=== PATIENT | male | born 1985 | race Caucasian/White ===

== ENCOUNTER 2016-04-22 09:25 | Inpatient (IN) | payer MEDICAID, OTHER ==
[~2016-04-22] VITALS: Ht 167.6 cm; Wt 93.0 kg
[2016-04-22] MEDS ORDERED: HYDROMORPHONE 1 MG/1 ML DISP.SYRIN IV ONE ×2 (10:30→12:30)
[2016-04-22] MEDS ORDERED: KETOROLAC TROMETHAMINE INJ 30 MG/ML VIAL IV ONE (10:30)
[2016-04-22] MEDS ORDERED: HYDROMORPHONE 1 MG/1 ML DISP.SYRIN ONE ×2 (10:49→12:09)
[2016-04-22] MEDS ORDERED: KETOROLAC TROMETHAMINE INJ 30 MG/ML VIAL ONE (10:50)
[2016-04-22 11:00] LABS: ADD UA MICROSCOPIC YES; KETONES,URINE Trace (NEGATIVE); LEUKOCYTE ESTERASE ,URINE Negative (NEGATIVE)
[2016-04-22 11:14] LABS: WBC,URINE 0-2 /HPF (0-3)
[2016-04-22 11:15] LABS: ADD URINE CULTURE NO
[2016-04-22] MEDS ORDERED: ALPR1TAB7 PO (12:26)
[2016-04-22] MEDS ORDERED: AMPH30TA PO (12:26)
[2016-04-22 13:30] VITALS: BP 115/58
[2016-04-22 13:37] LABS: BASOPHILS # (AUTO) 0.1 /CMM (0.0-0.2); BASOPHILS % (AUTO) 0.6 % (0.0-2.0); DIFF TOTAL % 100 %; EOSINOPHILS % (AUTO) 0.4 % (0.0-6.0); HEMATOCRIT 47 % (39-51); HEMOGLOBIN 15.6 g/dL (13.5-17.5); LYMPHOCYTES % (AUTO) 10.3 % (20.0-44.0); MEAN CORPUSCULAR HEMOGLOBIN 31 PG (26.0-33.0); MEAN CORPUSCULAR HGB CONC 34 g/dl (31.0-36.0); MEAN CORPUSCULAR VOLUME 94 fL (80-96); MONOCYTES # (AUTO) 0.8 /CMM (0.1-1.30); MONOCYTES % (AUTO) 7.5 % (2.0-12.0); NEUTROPHILS # (AUTO) 8.1 /CMM (1.8-8.9); NEUTROPHILS % (AUTO) 81.2 % (43.0-81.0); PLATELET COUNT (AUTO) 184 /CMM (150-450); RED BLOOD CELL COUNT(AUTO) 4.97 MIL/uL (4.5-6.0)
[2016-04-22 13:46] LABS: BILIRUBIN,DIRECT 0.2 mg/dL (0.0-0.2); BILIRUBIN,TOTAL 1.1 mg/dL (0.2-1.0); CALCIUM, SERUM 9.2 mg/dL (8.5-10.1); INDIRECT BILIRUBIN 0.9 mg/dL (0.0-1.1); POTASSIUM 3.9 mmol/L (3.5-5.1); TOTAL PROTEIN, SERUM 7.8 g/dL (6.4-8.2)
[2016-04-22 13:51] LABS: INR 0.93 (0.87-1.13); PROTHROMBIN TIME 9.8 SECS (9.5-12.7)
[2016-04-22 14:00] VITALS: BP 115/58
[2016-04-22] MEDS ORDERED: ACETAMINOPHEN 325 MG TABLET PO PRN (14:00)
[2016-04-22] MEDS ORDERED: MAGNESIUM HYDROXIDE 30 ML UDC PO PRN (14:00)
[2016-04-22] MEDS ORDERED: ONDANSETRON HCL/PF 4 MG/2 ML VIAL IVP PRN (14:00)
[2016-04-22] MEDS ORDERED: Z GUARD REMEDY 2 OZ OINT TP PRN (14:00)
[2016-04-22] MEDS: PANTOPRAZOLE 40 MG VIAL IV SCH (14:21)
[2016-04-22] MEDS: HYDROMORPHONE INJ 2 MG/ML DISP.SYRIN IV PRN ×2 (14:22→21:14)
[2016-04-22 16:00] VITALS: BP 119/71
[2016-04-22] MEDS: HYDROCODONE/APAP 5/325MG 1 EACH TABLET PO PRN ×2 (17:33→23:44)
[2016-04-22 20:35] VITALS: BP 117/73
[2016-04-23] MEDS: ZOLPIDEM TARTRATE 5 MG TABLET PO PRN (01:38)
[2016-04-23] MEDS ORDERED: HYDROMORPHONE INJ 2 MG/ML DISP.SYRIN ONE (02:24)
[2016-04-23] MEDS: HYDROMORPHONE INJ 2 MG/ML DISP.SYRIN IV PRN ×3 (02:35→11:47)
[2016-04-23 06:56] LABS: BASOPHILS % (AUTO) 0.6 % (0.0-2.0); DIFF TOTAL % 100 %; EOSINOPHILS # (AUTO) 0.1 /CMM (0.0-0.7); EOSINOPHILS % (AUTO) 0.7 % (0.0-6.0); HEMATOCRIT 41 % (39-51); LYMPHOCYTES # (AUTO) 1.3 /CMM (0.8-4.8); LYMPHOCYTES % (AUTO) 15.2 % (20.0-44.0); MEAN CORPUSCULAR HEMOGLOBIN 32 PG (26.0-33.0); MEAN CORPUSCULAR HGB CONC 34 g/dl (31.0-36.0); MEAN CORPUSCULAR VOLUME 94 fL (80-96); MONOCYTES # (AUTO) 0.7 /CMM (0.1-1.30); MONOCYTES % (AUTO) 8.3 % (2.0-12.0); NEUTROPHILS # (AUTO) 6.3 /CMM (1.8-8.9); NEUTROPHILS % (AUTO) 75.2 % (43.0-81.0); PLATELET COUNT (AUTO) 183 /CMM (150-450); RED BLOOD CELL COUNT(AUTO) 4.36 MIL/uL (4.5-6.0); WHITE BLOOD COUNT (AUTO) 8.3 K/uL (4.3-11.0)
[2016-04-23 07:19] LABS: ALBUMIN 3.3 g/dL (3.4-5.0); BILIRUBIN,TOTAL 0.6 mg/dL (0.2-1.0); CALCIUM, SERUM 8.5 mg/dL (8.5-10.1); CREATININE 0.9 mg/dL (0.6-1.3); PHOSPHORUS 2.9 mg/dL (2.5-4.9); POTASSIUM 3.8 mmol/L (3.5-5.1); TOTAL PROTEIN, SERUM 7.1 g/dL (6.4-8.2)
[2016-04-23 08:00] VITALS: BP 111/75
[2016-04-23] MEDS: DOCUSATE SODIUM 100 MG CAPSULE PO SCH ×2 (08:03→17:26)
[2016-04-23] MEDS: HYDROCODONE/APAP 5/325MG 1 EACH TABLET PO PRN (08:04)
[2016-04-23] MEDS: PANTOPRAZOLE 40 MG VIAL IV SCH (08:13)
[2016-04-23] MEDS ORDERED: ALPRAZOLAM 0.25 MG TABLET PO PRN (10:30)
[2016-04-23] MEDS ORDERED: KETOROLAC TROMETHAMINE INJ 30 MG/ML VIAL IV PRN (10:30)
[2016-04-23] MEDS ORDERED: MORPHINE SULFATE INJ 2 MG/ML DISP.SYRIN IM PRN (12:00)
[2016-04-23] MEDS ORDERED: methylPREDNISolone DOSPAK(4MG) 1 PACK TAB.DS.PK PO ONE (12:00)
[2016-04-23] MEDS ORDERED: DOCUSATE SODIUM 100 MG CAPSULE PO SCH (13:00)
[2016-04-23] MEDS ORDERED: methylPREDNISolone (4MG) 4 MG TABLET (DAY #1) PO ONE (13:30)
[2016-04-23] MEDS ORDERED: IV SET PRIMARY PUMP SET 1 EA INFUS.SET MC ONE (13:43)
[2016-04-23] MEDS: SENNOSIDES/DOCUSATE SODIUM 1 TAB TABLET PO SCH (14:17)
[2016-04-23] MEDS: GABAPENTIN 100 MG CAPSULE PO SCH ×2 (14:17→17:26)
[2016-04-23] MEDS: ACETAMINOPHEN 325 MG TABLET PO SCH ×2 (14:17→17:26)
[2016-04-23] MEDS: IV D5/0.45 NACL 1,000 ML IV PRN (14:18)
[2016-04-23] MEDS: KETOROLAC TROMETHAMINE INJ 30 MG/ML VIAL IV SCH ×2 (14:31→20:03)
[2016-04-23] MEDS: oxyCODONE IR immediate release 5 MG CAPSULE PO PRN (15:18)
[2016-04-23] MEDS: MORPHINE SULFATE INJ 2 MG/ML DISP.SYRIN IV PRN (16:17)
[2016-04-23] MEDS: ALPRAZOLAM 0.25 MG TABLET PO PRN (17:25)
[2016-04-23] MEDS ORDERED: methylPREDNISolone (4MG) 4 MG TABLET (DAY #1, BEFORE DINNER) PO ONE (17:30)
[2016-04-23 20:32] VITALS: BP 128/74
[2016-04-23] MEDS ORDERED: methylPREDNISolone (4MG) 4 MG TABLET (DAY #1, HS) PO ONE (22:00)
[2016-04-24] MEDS: KETOROLAC TROMETHAMINE INJ 30 MG/ML VIAL IV SCH ×3 (01:08→13:57)
[2016-04-24] MEDS: ACETAMINOPHEN 325 MG TABLET PO SCH ×3 (05:25→11:54)
[2016-04-24] MEDS ORDERED: methylPREDNISolone (4MG) 4 MG TABLET (DAY#2 ACB) PO ONE (07:30)
[2016-04-24 08:00] VITALS: BP 132/79
[2016-04-24] MEDS: oxyCODONE IR immediate release 5 MG CAPSULE PO PRN ×4 (08:12→21:57)
[2016-04-24] MEDS: PANTOPRAZOLE 40 MG VIAL IV SCH (09:07)
[2016-04-24] MEDS: SENNOSIDES/DOCUSATE SODIUM 1 TAB TABLET PO SCH (09:08)
[2016-04-24] MEDS: ALPRAZOLAM 0.25 MG TABLET PO PRN ×2 (09:08→21:17)
[2016-04-24] MEDS: DOCUSATE SODIUM 100 MG CAPSULE PO SCH ×2 (09:08→18:19)
[2016-04-24] MEDS: GABAPENTIN 100 MG CAPSULE PO SCH ×3 (09:08→18:19)
[2016-04-24] MEDS: MORPHINE SULFATE INJ 2 MG/ML DISP.SYRIN IV PRN ×2 (11:15→18:33)
[2016-04-24] MEDS ORDERED: methylPREDNISolone (4MG) 4 MG TABLET (DAY#2,PC LUNCH) PO ONE (12:30)
[2016-04-24] MEDS ORDERED: DEXAMETHASONE SOD PHOSPHATE 10 MG/ML VIAL IV STA (14:09)
[2016-04-24] MEDS: NAPROXEN 500 MG TABLET PO SCH ×2 (15:15→17:00)
[2016-04-24 16:00] VITALS: BP 122/72
[2016-04-24] MEDS ORDERED: methylPREDNISolone (4MG) 4 MG TABLET (DAY#2, PC DINNER) PO ONE (17:30)
[2016-04-24] MEDS ORDERED: methylPREDNISolone (4MG) 4 MG TABLET (DAY#2, HS) PO ONE (21:00)
[2016-04-24 22:00] VITALS: BP 130/75
[2016-04-24] MEDS: IV D5/0.45 NACL 1,000 ML IV PRN (23:17)
[2016-04-25] MEDS: MORPHINE SULFATE INJ 2 MG/ML DISP.SYRIN IV PRN ×3 (01:22→09:56)
[2016-04-25] MEDS: oxyCODONE IR immediate release 5 MG CAPSULE PO PRN ×5 (04:38→17:01)
[2016-04-25] MEDS ORDERED: methylPREDNISolone (4MG) 4 MG TABLET (DAY#3,ACB) PO ONE (07:30)
[2016-04-25 08:00] VITALS: BP 123/70
[2016-04-25] MEDS: DOCUSATE SODIUM 100 MG CAPSULE PO SCH ×2 (08:12→16:54)
[2016-04-25] MEDS: PANTOPRAZOLE 40 MG VIAL IV SCH (08:12)
[2016-04-25] MEDS: SENNOSIDES/DOCUSATE SODIUM 1 TAB TABLET PO SCH (08:12)
[2016-04-25] MEDS: GABAPENTIN 100 MG CAPSULE PO SCH ×3 (08:12→16:52)
[2016-04-25] MEDS: NAPROXEN 500 MG TABLET PO SCH ×2 (08:15→16:52)
[2016-04-25] MEDS ORDERED: methylPREDNISolone (4MG) 4 MG TABLET (DAY#3,PC LUNCH) PO ONE (12:30)
[2016-04-25] MEDS ORDERED: KETOROLAC TROMETHAMINE INJ 60 MG/2 ML VIAL IM STA (13:36)
[2016-04-25 14:22] LABS: CALCIUM, SERUM 8.6 mg/dL (8.5-10.1); POTASSIUM 4.2 mmol/L (3.5-5.1)
[2016-04-25 16:00] VITALS: BP_SYST 108; BP_SYST 126; BP_DIAS 58; BP_DIAS 86
[2016-04-25 16:49] VITALS: BP 126/86
[2016-04-25] MEDS ORDERED: methylPREDNISolone (4MG) 4 MG TABLET (DAY#3,PC DINNER) PO ONE (17:30)
[2016-04-25 20:00] VITALS: BP 114/85
[2016-04-25] MEDS: ALPRAZOLAM 0.25 MG TABLET PO PRN (20:37)
[2016-04-25] MEDS: ZOLPIDEM TARTRATE 5 MG TABLET PO PRN (21:43)
[2016-04-25] MEDS ORDERED: methylPREDNISolone (4MG) 4 MG TABLET (DAY#3, HS) PO ONE (22:00)
[2016-04-26] MEDS: oxyCODONE IR immediate release 5 MG CAPSULE PO PRN ×5 (00:28→13:07)
[2016-04-26] MEDS ORDERED: methylPREDNISolone (4MG) 4 MG TABLET (DAY #4, ACB) PO ONE (07:30)
[2016-04-26 08:00] VITALS: BP 100/51
[2016-04-26] MEDS: GABAPENTIN 100 MG CAPSULE PO SCH ×2 (08:27→12:41)
[2016-04-26] MEDS: DOCUSATE SODIUM 100 MG CAPSULE PO SCH (08:27)
[2016-04-26] MEDS: PANTOPRAZOLE 40 MG VIAL IV SCH (08:27)
[2016-04-26] MEDS: SENNOSIDES/DOCUSATE SODIUM 1 TAB TABLET PO SCH (08:27)
[2016-04-26] MEDS: NAPROXEN 500 MG TABLET PO SCH (08:30)
[2016-04-26] MEDS: ALPRAZOLAM 0.25 MG TABLET PO PRN (10:19)
[2016-04-26] MEDS: MORPHINE SULFATE INJ 2 MG/ML DISP.SYRIN IV PRN (10:20)
[2016-04-26] MEDS ORDERED: FLU VACC QS 2016-17(36MOS+)/PF 0.5 ML DISP.SYRIN IM ONE (12:00)
[2016-04-26] MEDS ORDERED: methylPREDNISolone (4MG) 4 MG TABLET (DAY #4, PC LUNCH) PO ONE (12:30)
[2016-04-26] MEDS ORDERED: KETOROLAC TROMETHAMINE INJ 60 MG/2 ML VIAL IM ONE (14:10)
[2016-04-26] MEDS ORDERED: methylPREDNISolone (4MG) 4 MG TABLET (DAY#4 HS) PO ONE (22:00)
[2016-04-27] MEDS ORDERED: methylPREDNISolone (4MG) 4 MG TABLET (DAY#5, ACB) PO ONE (07:30)
[2016-04-27] MEDS ORDERED: methylPREDNISolone (4MG) 4 MG TABLET (DAY#5,HS) PO ONE (22:00)
[2016-04-28] MEDS ORDERED: methylPREDNISolone (4MG) 4 MG TABLET (DAY#6,ACB) PO ONE (07:30)
== END 2016-04-26 15:54 | disposition home or self-care (01) | DRG 347 ==
LOC: ER 09:27 → MED 13:09
PROVIDERS: ADMIT Internal Medicine; ATTEND Internal Medicine
DX: M51.16 Intervertebral disc disorders with radiculopathy, lumbar region (principal); M48.04 Spinal stenosis, thoracic region; F90.9 Attention-deficit hyperactivity disorder, unspecified type; F41.9 Anxiety disorder, unspecified; M50.90 Cervical disc disorder, unspecified, unspecified cervical region; M48.06 Spinal stenosis, lumbar region; K59.00 Constipation, unspecified
CPT/HCPCS: 36415; 72131-TC; 80048-TC; 80053-TC; 80061-TC; 80076-TC; 81000-TC; 83735-TC; 84100-TC; 85025-TC; 85730-TC; 87081-TC; 97001-TC; 97116-TC; 97530-TC; A4606; C9113; J1100; J1170; J1885; J2270; J3490; J7509; Q2036; Z7610

== ENCOUNTER 2017-01-20 11:00 | Emergency (ER) | payer MEDICAID, OTHER ==
[~2017-01-20] VITALS: Ht 177.8 cm; Wt 99.8 kg
[~2017-01-20 11:00] MED LIST: ALPR1TAB7 PO; DEXT30TA10 PO
[2017-01-20 11:02] VITALS: BP 146/106
== END 2017-01-20 11:39 | disposition home or self-care (01) ==
LOC: ER 11:07
DX: M54.9 Dorsalgia, unspecified (principal); G89.29 Other chronic pain; F17.200 Nicotine dependence, unspecified, uncomplicated; F98.8 Other specified behavioral and emotional disorders with onset usually occurring in childhood and adolescence; V49.49XA Driver injured in collision with other motor vehicles in traffic accident, initial encounter; Y93.89 Activity, other specified; Y92.89 Other specified places as the place of occurrence of the external cause; Y99.9 Unspecified external cause status
CPT/HCPCS: 99283; A4606; Z7610

== ENCOUNTER 2017-02-21 18:31 | Emergency (ER) | payer MEDICAID, OTHER ==
[~2017-02-21] VITALS: Ht 177.8 cm; Wt 99.8 kg
--- NOTE | 2017-02-21 18:42 | NUR ---
PT BIBRA TO ER BED 10. HERE FOR DEPRESSION/ SI NO SPECIFIC PLAN AT THIS TIME. PT IS AAOX3 VERBALLY RESPONSIVE AND COOPERATIVE TO STAFF. DENIES HI. PLACED ON SI PRECAUTION. AWAITING MD CARRILLO.
--- NOTE | 2017-02-21 18:44 | NUR ---
DR SORIA AT BEDSIDE FOR EVAL.
--- NOTE | 2017-02-21 18:49 | NUR ---
PYROTECHNIC ASSEMBLER AT BEDSIDE FOR BLOOD DRAW.
[2017-02-21 18:59] LABS: BASOPHILS # (AUTO) 0.1 /CMM (0.0-0.2); BASOPHILS % (AUTO) 0.8 % (0.0-2.0); EOSINOPHILS # (AUTO) 0.2 /CMM (0.0-0.7); EOSINOPHILS % (AUTO) 2.1 % (0.0-6.0); HEMATOCRIT 48 % (39-51); HEMOGLOBIN 16.5 g/dL (13.5-17.5); LYMPHOCYTES # (AUTO) 2.1 /CMM (0.8-4.8); LYMPHOCYTES % (AUTO) 23.5 % (20.0-44.0); MEAN CORPUSCULAR HEMOGLOBIN 32 PG (26.0-33.0); MEAN CORPUSCULAR HGB CONC 34 g/dl (31.0-36.0); MEAN CORPUSCULAR VOLUME 94 fL (80-96); MONOCYTES # (AUTO) 0.4 /CMM (0.1-1.30); MONOCYTES % (AUTO) 4.6 % (2.0-12.0); NEUTROPHILS # (AUTO) 6.1 /CMM (1.8-8.9); PLATELET COUNT (AUTO) 250 /CMM (150-450); RDW COEFFICIENT OF VARIATION 13.7 (11.5-15.0); RED BLOOD CELL COUNT(AUTO) 5.09 MIL/uL (4.5-6.0); WHITE BLOOD COUNT (AUTO) 8.9 K/uL (4.3-11.0)
[2017-02-21 19:01] LABS: APPEARANCE,URINE Clear (CLEAR); BILIRUBIN,URINE Negative (NEGATIVE); BLOOD, URINE Negative Ery/uL (NEGATIVE); COLOR,URINE Yellow (YELLOW); KETONES,URINE Negative (NEGATIVE); LEUKOCYTE ESTERASE ,URINE Negative (NEGATIVE); NITRITE, URINE Negative (NEGATIVE); PROTEIN,URINE Negative (NEGATIVE); UGLUCOSE Negative (NEGATIVE); UROBILINOGEN,URINE 0.2 EU/dL (0.2)
[2017-02-21 19:10] LABS: CALCIUM, SERUM 9.6 mg/dL (8.5-10.1); CARBON DIOXIDE 31 mmol/L (21-32); CHLORIDE 101 mmol/L (98-107); CREATININE 1.1 mg/dL (0.6-1.3); GLUCOSE 101 mg/dL (74-106); SODIUM SERUM 139 mmol/L (136-145); UREA NITROGEN, BLOOD 17 mg/dL (7-18)
--- NOTE | 2017-02-21 19:12 | NUR ---
CALLED [facility], ETA OF 1 HR.
[2017-02-21 19:14] LABS: ALANINE AMINOTRANSFERASE 78 U/L (12-78); ALBUMIN 4.5 g/dL (3.4-5.0); ALCOHOL, BLOOD < 3 mg/dL (0-0); ALKALINE PHOSPHATASE 66 U/L (46-116); ASPARTATE AMINOTRANSFERASE 33 U/L (15-37); BILIRUBIN,DIRECT 0.1 mg/dL (0.0-0.2); BILIRUBIN,TOTAL 0.4 mg/dL (0.2-1.0); SALICYLATE 3.4 mg/dL (2.8-20.0); TOTAL PROTEIN, SERUM 7.9 g/dL (6.4-8.2)
[2017-02-21 19:15] LABS: ACETAMINOPHEN 0 ug/ml (10-30)
--- NOTE | 2017-02-21 19:59 | NUR ---
VY RN AT BEDSIDE FOR PSYCH EVAL.
--- NOTE | 2017-02-21 20:38 | NUR ---
MEDICALLY AND PSYCH CLEARED. D/C HOME W/ PRESCRIPTION FOR IBUPROFEN. ACI GIVEN. STABLE CONDITION.
[2017-02-21 20:40] VITALS: BP 132/84
== END 2017-02-21 20:40 | disposition home or self-care (01) ==
LOC: ER 18:32
DX: R45.851 Suicidal ideations (principal); F31.9 Bipolar disorder, unspecified; F42.9 Obsessive-compulsive disorder, unspecified; F43.10 Post-traumatic stress disorder, unspecified; G89.29 Other chronic pain; F19.10 Other psychoactive substance abuse, uncomplicated; F12.10 Cannabis abuse, uncomplicated; F17.200 Nicotine dependence, unspecified, uncomplicated; F10.10 Alcohol abuse, uncomplicated; F22 Delusional disorders
CPT/HCPCS: 36415; 80048; 80076; 80305; 80329; 81001; 85025; 99284; A4606; G0480 ×2; Z7610; 81000-TC

== ENCOUNTER 2017-11-30 12:15 | Emergency (ER) | payer OTHER ==
[~2017-11-30] VITALS: Ht 170.2 cm; Wt 95.3 kg
[2017-11-30 12:58] LABS: BASOPHILS # (AUTO) 0.1 /CMM (0.0-0.2); BASOPHILS % (AUTO) 0.9 % (0.0-2.0); EOSINOPHILS % (AUTO) 2.1 % (0.0-6.0); HEMATOCRIT 46 % (39-51); HEMOGLOBIN 15.4 g/dL (13.5-17.5); LYMPHOCYTES # (AUTO) 1.8 /CMM (0.8-4.8); LYMPHOCYTES % (AUTO) 23.8 % (20.0-44.0); MEAN CORPUSCULAR HEMOGLOBIN 31 PG (26.0-33.0); MEAN CORPUSCULAR HGB CONC 33 g/dl (31.0-36.0); MEAN CORPUSCULAR VOLUME 92 fL (80-96); MONOCYTES # (AUTO) 0.3 /CMM (0.1-1.30); MONOCYTES % (AUTO) 4.3 % (2.0-12.0); NEUTROPHILS % (AUTO) 68.9 % (43.0-81.0); PLATELET COUNT (AUTO) 232 /CMM (150-450); RED BLOOD CELL COUNT(AUTO) 5.04 MIL/uL (4.5-6.0); WHITE BLOOD COUNT (AUTO) 7.4 K/uL (4.3-11.0)
[2017-11-30] MEDS ORDERED: TDAP [DIPH/PERTUSSIS/TET] 0.5 ML VIAL IM ONE ×2 (13:00→13:15)
[2017-11-30] MEDS ORDERED: OLANZAPINE 10 MG VIAL IM ONE ×2 (13:00→13:15)
[2017-11-30 13:06] LABS: CALCIUM, SERUM 9.2 mg/dL (8.5-10.1); CARBON DIOXIDE 27 mmol/L (21-32); CHLORIDE 105 mmol/L (98-107); CREATININE 0.9 mg/dL (0.6-1.3); GLUCOSE 96 mg/dL (74-106); POTASSIUM 4.1 mmol/L (3.5-5.1); SODIUM SERUM 139 mmol/L (136-145); UREA NITROGEN, BLOOD 16 mg/dL (7-18)
[2017-11-30 13:11] LABS: ALANINE AMINOTRANSFERASE 32 U/L (12-78); ALBUMIN 4.4 g/dL (3.4-5.0); ALKALINE PHOSPHATASE 53 U/L (46-116); ASPARTATE AMINOTRANSFERASE 16 U/L (15-37); BILIRUBIN,DIRECT 0.1 mg/dL (0.0-0.2); BILIRUBIN,TOTAL 0.4 mg/dL (0.2-1.0); SALICYLATE 4.8 mg/dL (2.8-20.0); TOTAL PROTEIN, SERUM 7.5 g/dL (6.4-8.2)
[2017-11-30 13:12] LABS: ACETAMINOPHEN 0 ug/ml (10-30); ALCOHOL, BLOOD < 3 mg/dL (0-0)
--- NOTE | 2017-11-30 13:23 | NUR ---
MEDICATIONS ADMINISTERED ORDERED PER
--- NOTE | 2017-11-30 14:20 | NUR ---
In n out delgado catheter inserted per sterile protocal. Immediate output 100ml. specimen sent to lab.
--- NOTE | 2017-11-30 15:05 | NUR ---
CALLED [facility] FOR THIS PT.
[2017-11-30 15:27] LABS: APPEARANCE,URINE Clear (CLEAR); BILIRUBIN,URINE Negative (NEGATIVE); BLOOD, URINE Negative Ery/uL (NEGATIVE); COLOR,URINE Yellow (YELLOW); KETONES,URINE Negative (NEGATIVE); LEUKOCYTE ESTERASE ,URINE Negative (NEGATIVE); NITRITE, URINE Negative (NEGATIVE); PROTEIN,URINE Negative (NEGATIVE); UGLUCOSE Negative (NEGATIVE); UROBILINOGEN,URINE 0.2 EU/dL (0.2)
[2017-11-30] MEDS ORDERED: LORAZEPAM 1 MG TABLET PO ONE (16:00)
--- NOTE | 2017-11-30 18:15 | NUR ---
ASLEEP AND SNORING,SR ON THE MONITOR.
--- NOTE | 2017-11-30 19:20 | NUR ---
ASSUMED CARE OF PT AT THIS TIME. AWAKE AND ON THE PHONE. DENIES ANY SX'S AT THIS TIME. RESP EVEN AND UNLABORED. GIVEN ICE WATER AND SANDWICH. INFORMED OF PENDING D/C PLANS.
--- NOTE | 2017-11-30 20:43 | NUR ---
AAO X4; PASSED TRIAL AMBULATION. DENIES ANY MEDICAL C/O/SI/HI AT THIS TIME. RESP EVEN AND UNLABORED. Patient discharged to home in stable condition. Written and verbal after care instructions given. Patient verbalizes understanding of instruction. Ambulatory with a steady gait accompanied by s/o.
[2017-11-30 20:51] VITALS: BP 120/74
== END 2017-11-30 20:55 | disposition home or self-care (01) ==
LOC: ER 12:22
DX: F15.259 Other stimulant dependence with stimulant-induced psychotic disorder, unspecified (principal); F31.9 Bipolar disorder, unspecified; F20.0 Paranoid schizophrenia; F10.10 Alcohol abuse, uncomplicated; F17.200 Nicotine dependence, unspecified, uncomplicated; Y90.0 Blood alcohol level of less than 20 mg/100 ml
CPT/HCPCS: 36415; 51702; 80048; 80076; 80305; 80329; 81001; 85025; 90471; 90715; 96372; 99284; A4606; G0480 ×2; J3490; Z7610; 81000-TC

== ENCOUNTER 2018-04-05 19:47 | Inpatient (IN) | payer OTHER ==
[~2018-04-05] VITALS: Ht 172.7 cm; Wt 98.4 kg
--- NOTE | 2018-04-05 20:00 | NUR ---
[facility], DAD CALLED 911 FOR ETOH INTOXICATION, PT BELLIGERANT, REFUSING TO ANSWER QUESTIONS, REPORT DRINKING X2 DAYS. PT CONTINUOUSLY SCREAMS OUT AND USES PROFANITY TOWARD STAFF. HAS LARGE HEMATOMA ON FOREHEAD. NO RESPIRATORY DISTRESS NOTED. SKIN WARM TO TOUCH, DRY, INTACT. READY FOR EVAL.
--- NOTE | 2018-04-05 20:30 | NUR ---
4-POINT MEDICAL RESTRAINTS APPLIED PER MD DUE TO COMBATIVE BEHAVIOR. CMS INTACT ON ALL 4 EXTREMITIES. WILL CONT TO MONITOR CLOSELY
[2018-04-05] MEDS ORDERED: OLANZAPINE 10 MG VIAL IM ONE ×2 (20:57→21:00)
[2018-04-05 21:13] LABS: BASOPHILS # (AUTO) 0.1 /CMM (0.0-0.2); BASOPHILS % (AUTO) 0.7 % (0.0-2.0); EOSINOPHILS % (AUTO) 1.2 % (0.0-6.0); HEMATOCRIT 46 % (39-51); HEMOGLOBIN 15.6 g/dL (13.5-17.5); LYMPHOCYTES # (AUTO) 2.3 /CMM (0.8-4.8); LYMPHOCYTES % (AUTO) 32.6 % (20.0-44.0); MEAN CORPUSCULAR HGB CONC 34 g/dl (31.0-36.0); MEAN CORPUSCULAR VOLUME 96 fL (80-96); MONOCYTES # (AUTO) 0.7 /CMM (0.1-1.30); MONOCYTES % (AUTO) 9.2 % (2.0-12.0); NEUTROPHILS % (AUTO) 56.3 % (43.0-81.0); PLATELET COUNT (AUTO) 232 /CMM (150-450); RED BLOOD CELL COUNT(AUTO) 4.77 MIL/uL (4.5-6.0); WHITE BLOOD COUNT (AUTO) 7.1 K/uL (4.3-11.0)
[2018-04-05 21:26] LABS: CALCIUM, SERUM 8.7 mg/dL (8.5-10.1); CARBON DIOXIDE 30 mmol/L (21-32); CHLORIDE 109 mmol/L (98-107); CREATININE 1.2 mg/dL (0.6-1.3); GLUCOSE 119 mg/dL (74-106); SODIUM SERUM 150 mmol/L (136-145); UREA NITROGEN, BLOOD 14 mg/dL (7-18)
--- NOTE | 2018-04-05 21:30 | NUR ---
PT CONTINUES TO BE SLIGHTLY AGITATED, SCREAMING AND SWEARING. ATTEMPTED TO CALM HIM BY GIVING BLANKET, TURNING DOWN LIGHT, AND TALKING IN CALM VOICE. CMS INTACT ON ALL 4 EXTREMITIES
[2018-04-05 21:32] LABS: ALANINE AMINOTRANSFERASE 58 U/L (12-78); ALBUMIN 4.4 g/dL (3.4-5.0); ALKALINE PHOSPHATASE 54 U/L (46-116); ASPARTATE AMINOTRANSFERASE 32 U/L (15-37); BILIRUBIN,DIRECT 0.1 mg/dL (0.0-0.2); BILIRUBIN,TOTAL 0.4 mg/dL (0.2-1.0); SALICYLATE 3.1 mg/dL (2.8-20.0); TOTAL PROTEIN, SERUM 7.6 g/dL (6.4-8.2)
[2018-04-05 21:55] LABS: ACETAMINOPHEN < 2 ug/ml (10-30)
--- NOTE | 2018-04-05 22:00 | NUR ---
CMS INTACT IN ALL 4 EXTREMITIES
[2018-04-05 22:07] LABS: ALCOHOL, BLOOD 303 mg/dL (0-0)
--- NOTE | 2018-04-05 22:10 | NUR ---
RESTRAINTS DC'D DUE TO CALM BEHAVIOR AND NO LONGER DANGER TO SELF OR OTHERS.
--- NOTE | 2018-04-05 22:30 | NUR ---
CONDOM CATH APPLIED PER SCREENING TECH ORDER
--- NOTE | 2018-04-05 23:28 | NUR ---
ENDORSED PT TO ISIDRO LAZAR FOR MARTINEZ
--- NOTE | 2018-04-05 23:37 | NUR ---
PT TAKEN TO RADIOLOGY FOT CT VIA LYNNE
--- NOTE | 2018-04-06 01:41 | NUR ---
Patient is resting comfortably in bed with eyes closed. Easily aroused. VSS
[2018-04-06] MEDS ORDERED: TDAP [DIPH/PERTUSSIS/TET] 0.5 ML VIAL IM ONE ×2 (02:00→02:06)
[2018-04-06] MEDS ORDERED: AMOX/CLAVULANATE 875 MG TABLET ONE (02:06)
[2018-04-06] MEDS ORDERED: AMOX/CLAVULANATE 875 MG TABLET PO ONE (02:30)
--- NOTE | 2018-04-06 03:31 | NUR ---
REPORT GIVEN TO ISIDRO MCCLAIN FOR MARTINEZ
[2018-04-06 04:00] VITALS: BP 123/70
--- NOTE | 2018-04-06 04:00 | NUR ---
MARY RN NOTE PATIENT RECEIVED IN RNEY SLEEPING, BUT AROUSAL TO TOUCH AND LIGHT PAIN. NEURO CHECK DONE, PUPILS SHEKHAR AND SLUGGISH, DENIES ANY PAIN OR DISCOMFORT AT THIS TIME, SMILE SYMMETRICAL. HAND GRASPS EVEN. IV LINE IS PLACED AND IS PATIENT, INTACT. SKIN ASSESSMENT IS DONE. PATIENT PLACED ON VEGETABLE WORKER WITH SR-ST, ON RA WITH SPO2 >95%. ALL SAFETY MEASURES ARE IMPLEMENTED. RN WILL CONTINUE TO MONITOR CLOSELY. BED IN LOWEST LOCKED POSITION NO S.S OF DISTRESS. CALL LIGHT WITHIN REACH.
[2018-04-06] MEDS ORDERED: LORAZEPAM 1 MG TABLET PO PRN (04:30)
[2018-04-06] MEDS ORDERED: ACETAMINOPHEN 325 MG TABLET PO PRN (04:30)
[2018-04-06] MEDS ORDERED: Potassium Chloride 20 MEQ in IV D5/0.45 NACL 1,000 ML IV PRN (04:30)
[2018-04-06] MEDS ORDERED: Thiamine 100 MG in IV D5W 50 ML IV SCH (05:00)
[2018-04-06] MEDS ORDERED: PIPERACILLIN /TAZOBACTAM 3.375 G in IV D5W 50 ML IV SCH (05:00)
[2018-04-06] MEDS ORDERED: Folic acid 1 MG in IV D5W 50 ML IV SCH (05:00)
[2018-04-06] MEDS ORDERED: IV PREMIX D5 1/2NS + KCL 1,000 ML IV ONE (05:18)
[2018-04-06] MEDS ORDERED: PIPERACILLIN /TAZOBACTAM 3.375 G VIAL IV ONE (06:05)
[2018-04-06 06:49] LABS: BASOPHILS % (AUTO) 0.5 % (0.0-2.0); EOSINOPHILS % (AUTO) 0.5 % (0.0-6.0); HEMATOCRIT 41 % (39-51); HEMOGLOBIN 14.2 g/dL (13.5-17.5); LYMPHOCYTES # (AUTO) 1.9 /CMM (0.8-4.8); LYMPHOCYTES % (AUTO) 25.4 % (20.0-44.0); MEAN CORPUSCULAR HGB CONC 34 g/dl (31.0-36.0); MEAN CORPUSCULAR VOLUME 95 fL (80-96); MONOCYTES # (AUTO) 0.5 /CMM (0.1-1.30); MONOCYTES % (AUTO) 7.3 % (2.0-12.0); NEUTROPHILS % (AUTO) 66.3 % (43.0-81.0); PLATELET COUNT (AUTO) 217 /CMM (150-450); RED BLOOD CELL COUNT(AUTO) 4.36 MIL/uL (4.5-6.0); WHITE BLOOD COUNT (AUTO) 7.5 K/uL (4.3-11.0)
[2018-04-06 06:56] LABS: CALCIUM, SERUM 8.4 mg/dL (8.5-10.1); CREATININE 0.9 mg/dL (0.6-1.3); POTASSIUM 3.4 mmol/L (3.5-5.1)
[2018-04-06 08:00] VITALS: BP 136/71
--- NOTE | 2018-04-06 08:06 | NUR ---
MARY RN NOTE PATIENT RECEIVED IN BED SLEEPING, BUT AROUSABLE TO TOUCH AND LIGHT PAIN. NEURO CHECK DONE, PUPILS SHEKHAR, DENIES ANY PAIN, SMILE SYMMETRICAL. HAND GRASPS EVEN. RN WILL CONTINUE TO MONITOR CLOSELY. BED IN LOWEST LOCKED POSITION NO S.S OF DISTRESS. CALL LIGHT WITHIN REACH.
[2018-04-06 12:00] VITALS: BP 142/84
[2018-04-06] MEDS: PIPERACILLIN /TAZOBACTAM 3.375 G in IV D5W 100 ML IV SCH ×2 (12:10→20:41)
[2018-04-06] MEDS: HYDROCODONE/APAP 5/325MG 1 EACH TABLET PO PRN ×2 (15:28→20:42)
[2018-04-06 16:00] VITALS: BP 121/65
--- NOTE | 2018-04-06 19:03 | NUR ---
Patient lives locally with his father. He was ambulatory and independent with adl's prior to admit. Has hx of alcohol abuse and ADHD. Social bilingual social worker referral sent for eval and substance abuse rehab resources. Current dc plan is to return home. Addendum: 04/06/18 at 1904 by KEVIN NEGRETE RN Amended: Links added.
--- NOTE | 2018-04-06 19:37 | NUR ---
TELERN ASLEEP, EASILY AROUSABLE. NO NEEDS FOR NOW. IVF OFF FOR NOW. REFUSED TO BE RECONNECTED. POSSIBLE DISCHARGE IN AM. SAFETY PRECAUTIONS EMPHASIZED, APPEARS TO UNDERSTAND. CLOSELY WATCHED.
--- NOTE | 2018-04-06 20:44 | NUR ---
TELERN AWAKENED, AGREED TO HAVE ZOSYN IV INFUSE. VERBALIZES FRONTAL CRUZ NORCO 1 TAB PO ADMINISTERED. SNACKS PROVIDED REQUESTED. COOPERATIVE.
[2018-04-06 20:47] VITALS: BP 123/70
--- NOTE | 2018-04-06 20:56 | NUR ---
TELERN OFF THE MONITOR, STATED WANTED TO SLEEP AND DOES NOT WANT TO BE BOTHERED. NOTIFIED CN, REFUSED MONITOR TO BE FIXED.
--- NOTE | 2018-04-06 22:00 | NUR ---
TELERN VERBALIZES HAVING PANIC ATTACK, WANTED TO BE DISCONNECTED FROM IV AND MONITOR. STATED FEELING "TIED UP". WALKING AROUND ROOM, REQUESTED MORE SNACKS PROVIDED. CLOSELY WATCHED
[2018-04-07 00:09] VITALS: BP 135/66
--- NOTE | 2018-04-07 00:27 | NUR ---
TELERN ENDORSED TO RN FOR CONTINUITY OF CARE
--- NOTE | 2018-04-07 00:29 | NUR ---
RINK RAT NOTES PT REFUSING TELE MONITOR AND IVF. EXPLAINED RISK AND BENEFITS. PT STILL REFUSED.
[2018-04-07] MEDS: HYDROCODONE/APAP 5/325MG 1 EACH TABLET PO PRN ×2 (01:00→09:10)
[2018-04-07] MEDS: PIPERACILLIN /TAZOBACTAM 3.375 G in IV D5W 100 ML IV SCH (03:27)
--- NOTE | 2018-04-07 03:28 | NUR ---
EP TECH NOTES PT REFUSED ZOSYN. EXPLAINED RISK AND BENEFITS. PER PT HE WANTS TO REST. WILL MONITOR PT CLOSELY.
[2018-04-07 04:00] VITALS: BP 131/70
--- NOTE | 2018-04-07 06:11 | NUR ---
STOCK DEALER NOTES PT REFUSING TELE MONITOR AND IVF FLUID. EXPLAINED RISK AND BENEFITS. PT STILL REFUSED. WILL MONITOR PT CLOSELY.
--- NOTE | 2018-04-07 06:37 | NUR ---
RV DETAILER NOTES NO ACUTE CHANGES NOTED DURING THE SHIFT. PT REFUSED IVF AND IV ATBX. PT REFUSED TELE MONITOR. PER PT MAKES HIM ANXIOUS. EXPLAINED BENEFITS. PT STILL REFUSED. WILL ENDORSE TO THE AM NURSE FOR CONTINUITY OF CARE.
[2018-04-07 08:00] VITALS: BP 106/71
--- NOTE | 2018-04-07 08:00 | NUR ---
RN NOTES RECEIVED PATIENT IN THE BED SLEEPING, PATIENT HAS NO ACUTE RESPIRATORY DISTRESS, V/S STABLE, CALL LIGHT WITHIN TO REACH, CONTINUED MONITORING.
[2018-04-07] MEDS ORDERED: THIAMINE HCL 100 MG TABLET PO SCH (09:00)
[2018-04-07] MEDS ORDERED: FOLIC ACID 1 MG TABLET PO SCH (09:00)
[2018-04-07] MEDS ORDERED: AMOX-430 PO (09:10)
--- NOTE | 2018-04-07 09:10 | NUR ---
RN NOTES ADMINISTERED NARCO 5/325 MG PO PRN FOR HEADACHE 10/25 PER PATIENT REQUEST, V/S TAKEN BP 106/71, P-56, CONTINUED MONITORING.
--- NOTE | 2018-04-07 09:30 | NUR ---
RN NOTES' SCHEDULED MEDICATION ADMINISTERED, PATIENT STABLE, PER Dr. LING PATIENT WILL DISCHARGE HOME. PATIENT MODULATORY SELF CARE. IV ACCESS ON LEFT AND RIGHT HANGS INTACT. CALL LIGHT WITHIN TO REACH, CONTINUED MONITORING.
--- NOTE | 2018-04-07 11:00 | NUR ---
RN NOTES PER PATIENT AND PATIENT'S FATHER REQUESTED TO SEE PSYCHIATRIST BEFORE DISCHARGE, CALLED DR GARNICA AND GET TO ORDER . ORDER TAKEN AND CARRIED OUT.
[2018-04-07] MEDS ORDERED: LORAZEPAM 0.5 MG TABLET PO ONE (11:30)
--- NOTE | 2018-04-07 11:38 | NUR ---
RN NOTES ADMINISTERED ATIVAN 0.5 MG PO PRN FOR ANXIETY X1 PRN PRESCRIBED. V/S STABLE. PATIENT WITH THE PSYCHIATRIST. CONTINUED MONITORING.
[2018-04-07 12:00] VITALS: BP 106/71
--- NOTE | 2018-04-07 12:23 | NUR ---
DISCHARGE NOTES PATIENT DISCHARGE AT THIS TIME GOING HOME. PATIENT STABLE, V/S STABLE, NO COMPLAINING OF PAIN. MED RECONCILIATION AND DISCHARGE ORDER REVIEWED AND EXPLAINED TO PATIENT AND FATHER. PATIENT VERBALIZED UNDERSTANDING. BELONGING WITH THE PATIENT. PRESCRIPTION HANDED TO THE PATIENT. PATIENT WILL FOLLOW PRIMARY MD. ESCORTED PATIENT O THE LOBBY FOR SAFETY. PATIENT SIGN PAPERWORK. PATIENT SUBSTATION MANAGER BY FATHER NAME GUSTAVO PHONE #[phone].
== END 2018-04-07 12:24 | disposition home or self-care (01) | DRG 775 ==
LOC: ER 19:50 → TELE-TD 04-06 03:56 → TELE1 04-06 18:04
PROVIDERS: ADMIT Internal Medicine; ATTEND Internal Medicine
DX: F10.129 Alcohol abuse with intoxication, unspecified (principal); S02.0XXA Fracture of vault of skull, initial encounter for closed fracture; F31.9 Bipolar disorder, unspecified; F17.210 Nicotine dependence, cigarettes, uncomplicated; Y90.8 Blood alcohol level of 240 mg/100 ml or more; F90.9 Attention-deficit hyperactivity disorder, unspecified type; F41.9 Anxiety disorder, unspecified; X58.XXXA Exposure to other specified factors, initial encounter; Y92.89 Other specified places as the place of occurrence of the external cause; F39 Unspecified mood [affective] disorder
CPT/HCPCS: 36415; 70450-TC; 70486-TC; 72125-TC; 80048-TC; 80076-TC; 85025-TC; 87081-TC; 90715; A4349; A4606; G0378; G0480; J2543; J3411; J3480; J3490; J7060; L0172; Z7610